=== PATIENT | female | born 1945 | race Caucasian/White ===

== ENCOUNTER 2020-06-09 20:04 | Emergency (ER) | payer MEDICARE, BC, SELFPAY ==
[2020-06-09 20:17] VITALS: BP 124/49; PULSE 67; RESP 14; TEMP 36.7; O2SAT 97; BMI 22.4
--- NOTE | 2020-06-09 20:40 | XR_ITS ---
EXAMINATION: XR FOREARM, RIGHT CLINICAL INFORMATION: Fall, pain COMPARISON: None TECHNIQUE: AP and lateral views of the right forearm were obtained. FINDINGS: Fracture of the distal radius. Mild ventral angulation at the fracture apex. Comminuted. Fracture likely communicates with the articulation of the proximal carpal row. XR/XR forearm RT 2V IMPRESSION: Fracture distal radial metaphysis. Mild ventral angulation
--- NOTE | 2020-06-09 20:41 | ECG_ITS ---
Test Reason : FALL Blood Pressure : / mmHG Vent. Rate : 067 BPM Atrial Rate : 067 BPM P-R Int : 162 ms QRS Dur : 076 ms QT Int : 382 ms P-R-T Axes : 071 052 069 degrees QTc Int : 403 ms Normal sinus rhythm Normal ECG When compared with ECG of 26-OCT-2019 15:47, No significant change was found Referred By: Generic ED Physician Electronically Signed By:RAHAT DOUGLAS MD
[2020-06-09 21:43] LABS: Basophils Percent Auto 0.1 % (0-2); Hematocrit 39.2 % (37-47); Hemoglobin 12.6 g/dl (12.0-16.0); Imm Gran Abs Auto 0.03 X10*3/uL (0.00-0.03); Imm Gran Pct Auto 0.3 % (0.0-0.4); Lymphocytes Absolute Auto 0.5 X10*3/uL (1.2-4.9); Lymphocytes Percent Auto 4.9 % (20-40); MANUAL DIFF FLAG SCAN; Mean Corpuscular HGB Conc 32.1 g/dl (31.0-35.0); Mean Corpuscular Hemoglobin 30.6 pg (27.0-33.0); Mean Corpuscular Volume 95.1 fL (80-98); Mean Platelet Volume 10.4 fL (9.4-12.3); Monocytes Absolute Auto 0.3 X10*3/uL (0.1-1.2); Monocytes Percent Auto 3.7 % (2-11); Neutrophils Absolute Auto 8.4 X10*3/uL (2.0-8.3); Platelet Count 296 X10*3/uL (160-400); Red Blood Count 4.12 X10*6/uL (4.20-5.50); Red Cell Distribution Width 13.5 % (11.0-16.0); SCAN SMEAR FLAG 1; White Blood Count 9.2 X10*3/uL (4.8-10.8)
[2020-06-09 22:02] LABS: Alanine Aminotransferase 22 U/L (0-31); Albumin Level 4.5 g/dL (3.5-5.0); Alkaline Phosphatase 104 U/L (39-117); Anion Gap 15 (12-20); Aspartate Amino Transferase 19 U/L (5-31); Bilirubin Total 0.6 mg/dL (0.0-1.0); Blood Urea Nitrogen 22 mg/dL (9-16); Calcium 9.3 mg/dL (8.4-10.2); Carbon Dioxide 25 mmol/L (22-29); Chloride 108 mmol/L (96-108); Creatinine Clr Calc Pharmacy 57.6; Estimated Glomerular Filt Rate > 60; Glucose Random 140 mg/dL (60-115); Potassium 4.6 mmol/l (3.3-5.1); Sodium 143 mmol/L (135-145); Total Protein 6.8 g/dL (6.5-8.0)
[2020-06-09 22:06] LABS: SLIDE REVIEW VERIFIED
[2020-06-09 22:08] LABS: Troponin-I High Sensitivity < 3.5 ng/L (<3.5-17.0)
--- NOTE | 2020-06-09 22:26 | ED_ITS ---
HPI - Fall General Chief Complaint: Fall Stated Complaint: fall Time Seen by Provider: 06/09/20 22:15 Source: patient Mode of arrival: ambulatory Limitations: no limitations History of Present Illness HPI Narrative: 74 yo female with dementia, HTN recent R eye surgery here with fall after tripping over a chair - no head or neck pain, no AC therapy exam concerning for R wrist fracture, labs / EKG, xray from waiting room ordered MD complaint: fall Onset (ago): hour(s) (today prior to arrival ) Fall from: standing Place fall occurred: home Loss of consciousness: none Prolonged down time: no Symptoms prior to fall: none Context: tripped/slipped Location of injury - extremities: right: forearm Severity: moderate Quality: aching Associated symptoms (after fall): denies Related Data Previous Rx's Medication Instructions Recorded hydrocodone-acetaminophen 1 tab PO Q6H PRN #12 tab 06/09/20 Allergies Allergy/AdvReac Type Severity Reaction Status Date / Time No Known Allergies Allergy Unknown NONE Verified 06/09/20 20:22 Review of Systems Review of Systems: Constitutional : No Fever, No Chills ENT/Mouth : No Ear Pain, No Hoarseness, No sore throat Eyes: No Eye Pain, No Swelling, No Redness, No Foreign Body Cardiovascular : No Chest Pain, No SOB Respiratory : No Cough, No Dyspnea Gastrointestinal : No Nausea, No Vomiting, No Diarrhea, No abdominal Pain Genitourinary : No Dysuria, No Hematuria Musculoskeletal : positive joint pain, No Myalgias, No Joint Swelling Skin : No Skin lacerations, No rash Neuro : No Weakness, No Numbness, No Loss of Consciousness, No Dizziness, No Headache Psych : No Anxiety/Panic, No Depression Heme/Lymph: no easy bruising, no Lymphadenopathy Endocrine : No Polyuria, No Polydipsia All other systems reviewed and are negative PMFSH Past Medical History Attestation statement: The following information was validated with the patient. Source: old records reviewed Medical History (Updated 06/09/20 @ 22:52 by Katja Campa DO) Dementia HTN (hypertension) Social History Social History (Updated 06/09/20 @ 22:32 by Katja Campa DO) Smoking Status: Never smoker Advance Directives: No Advance Directives Information Provided: No Physical Exam Vital Signs: Vital Signs: Last Vital Signs Temp 98.1 F 06/09/20 20:17 Pulse 67 06/09/20 20:17 Resp 14 06/09/20 20:17 BP 124/49 L 06/09/20 20:17 Pulse Ox 97 06/09/20 20:17 Body Mass Index 22.4 Appearance: Alert. Oriented X3 with questioning but seems mildly confused. No acute distress. Anxious Eyes: Pupils equal, round and reactive to light. ENT: Pharynx normal. Neck: Normal inspection. Neck supple. CVS: Normal heart rate and rhythm. Pulses normal. Respiratory: No respiratory distress. Breath sounds normal. Abdomen: Soft and nontender. Skin: Skin warm and dry. Normal skin color. Normal skin turgor. Extremities: No lower extremity edema. No calf ttp R wrist 2+ radial pulse, BRC in all digits, swelling and mild deformity at the wrist (R ) Neuro: Oriented X 3. No motor deficit. No sensory deficit. Course Course Course Narrative: the patient tolerated manipulation and traction well the area is comminuted I do not think I will be able to get better placement in the ED at this time given repeat lateral view, will refer to orthopedics Procedures Orthopedic Splinting/Casting Injury #1: Side: right Upper Extremity Injury Location: wrist Upper Extremity Immobilizer: sling/shoulder immobilizer and sugar tong splint Additional Comments: post splint NV intact MDM - Fall MDM Narrative Medical decision making narrative: 74 yo female was walking and tripped - bruce ng on R wrist, labs/EKG, xray from waiting room done, no AC therapy denies head or neck pain - will need reduction and splint/sling - PO pain medications referral to orthopedics, NV intact Lab Data Result diagrams: 06/09/20 21:26 06/09/20 21:26 Labs: Lab Results 06/09/20 06/09/20 06/09/20 Range/Units 21:26 21:26 21:26 WBC 9.2 (4.8-10.8) X10*3/uL RBC 4.12 L (4.20-5.50) X10*6/uL Hgb 12.6 (12.0-16.0) g/dl Hct 39.2 (37-47) % MCV 95.1 (80-98) fL MCH 30.6 (27.0-33.0) pg MCHC 32.1 (31.0-35.0) g/dl RDW 13.5 (11.0-16.0) % Plt Count 296 (160-400) X10*3/uL MPV 10.4 (9.4-12.3) fL Immature Gran % (Auto) 0.3 (0.0-0.4) % Neut % (Auto) 91.0 H (45-73) % Lymph % (Auto) 4.9 L (20-40) % [place] % (Auto) 3.7 (2-11) % Eos % (Auto) 0.0 (0-4) % Baso % (Auto) 0.1 (0-2) % Lymph # (Auto) 0.5 L (1.2-4.9) X10*3/uL [place] # (Auto) 0.3 (0.1-1.2) X10*3/uL Eos # (Auto) 0.0 (0.0-0.4) X10*3/uL Baso # (Auto) 0.0 (0.0-0.2) X10*3/uL Abs Immat Gran (auto) 0.03 (0.00-0.03) X10*3/uL Absolute Neuts (auto) 8.4 H (2.0-8.3) X10*3/uL Absolute Nucleated RBC 0.000 (0.0-0.012) X10*3/uL Nucleated RBC % (auto) 0.0 (0.0-0.2) /100WBC Smear Tech's Comments VERIFIED Hold Blue Top SEE NOTE Sodium 143 (135-145) mmol/L Potassium 4.6 (3.3-5.1) mmol/l Chloride 108 (96-108) mmol/L Carbon Dioxide 25 (22-29) mmol/L Anion Gap 15 (12-20) BUN 22 H (9-16) mg/dL Creatinine 0.82 (0.5-1.4) mg/dL Estim Creat Clear Calc 57.6 Estimated GFR > 60 Random Glucose 140 H (60-115) mg/dL Calcium 9.3 (8.4-10.2) mg/dL Total Bilirubin 0.6 (0.0-1.0) mg/dL AST 19 (5-31) U/L ALT 22 (0-31) U/L Alkaline Phosphatase 104 (39-117) U/L Troponin I High Sens (<3.5-17.0) ng/L Total Protein 6.8 (6.5-8.0) g/dL Albumin 4.5 (3.5-5.0) g/dL 06/09/20 Range/Units 21:26 WBC (4.8-10.8) X10*3/uL RBC (4.20-5.50) X10*6/uL Hgb (12.0-16.0) g/dl Hct (37-47) % MCV (80-98) fL MCH (27.0-33.0) pg MCHC (31.0-35.0) g/dl RDW (11.0-16.0) % Plt Count (160-400) X10*3/uL MPV (9.4-12.3) fL Immature Gran % (Auto) (0.0-0.4) % Neut % (Auto) (45-73) % Lymph % (Auto) (20-40) % [place] % (Auto) (2-11) % Eos % (Auto) (0-4) % Baso % (Auto) (0-2) % Lymph # (Auto) (1.2-4.9) X10*3/uL [place] # (Auto) (0.1-1.2) X10*3/uL Eos # (Auto) (0.0-0.4) X10*3/uL Baso # (Auto) (0.0-0.2) X10*3/uL Abs Immat Gran (auto) (0.00-0.03) X10*3/uL Absolute Neuts (auto) (2.0-8.3) X10*3/uL Absolute Nucleated RBC (0.0-0.012) X10*3/uL Nucleated RBC % (auto) (0.0-0.2) /100WBC Smear Tech's Comments Hold Blue Top Sodium (135-145) mmol/L Potassium (3.3-5.1) mmol/l Chloride (96-108) mmol/L Carbon Dioxide (22-29) mmol/L Anion Gap (12-20) BUN (9-16) mg/dL Creatinine (0.5-1.4) mg/dL Estim Creat Clear Calc Estimated GFR Random Glucose (60-115) mg/dL Calcium (8.4-10.2) mg/dL Total Bilirubin (0.0-1.0) mg/dL AST (5-31) U/L ALT (0-31) U/L Alkaline Phosphatase (39-117) U/L Troponin I High Sens < 3.5 (<3.5-17.0) ng/L Total Protein (6.5-8.0) g/dL Albumin (3.5-5.0) g/dL ECG Data Attestation: I personally reviewed and interpreted this ECG as follows: ECG interpretation date: 06/09/20 ECG interpretation time: 22:50 Interpretation: Rate: 67 Rhythm: NSR [place]: normal Normal P waves. Normal [place]. Normal QRS complex. ST T wave : normal no LARRY qTC: normal prior studies: no acute ischemia The study has been interpreted contemporaneously by me. . Discharge Plan Discharge Clinical Impression: Fracture of wrist Qualifiers: Encounter type: initial encounter Fracture type: closed Laterality: right Qualified Code(s): S62.101A - Fracture of unspecified carpal bone, right wrist, initial encounter for closed fracture Patient Disposition: Home, Self-Care Instructions: Wrist Fracture in Adults (ED), Splint Care (ED) Additional Instructions: wear splint until released, monitor for signs of increased pain, blue fingers, cold fingers Prescriptions: New hydrocodone-acetaminophen 5-325 mg tablet 1 tab PO Q6H PRN (Reason: pain) Qty: 12 RF: 0 Referrals: Anjana Ross PA-C [Physician [employer]] - 5 days (please call for appointment the xray shows the bone has multiple fracture sites and crushed this may require surgery )
[2020-06-09] MEDS: oxyCODONE HCl Immed Release 5 MG TABLET PO (22:49)
--- NOTE | 2020-06-09 22:49 | XR_ITS ---
EXAMINATION: XR WRIST, RIGHT CLINICAL INFORMATION: Post splint/reduction. COMPARISON: Right forearm radiographs earlier this evening. TECHNIQUE: PA, lateral, and oblique views of the right wrist. FINDINGS: Again seen is a fracture through the distal radial metaphysis with dorsal angulation. Compared to the prior study, there has been little significant interval change. Casting obscures some detail. Degenerative change is noted at the 1st metacarpophalangeal joint. XR/XR wrist RT min 3V IMPRESSION: Fracture distal radius with dorsal angulation without significant change.
--- NOTE | 2020-06-09 22:51 | PC.NURSE ---
RIGHT FOREARM WRAPPED WITH SUGAR SPLINT BY & RAJI,PCT. PATIENT MEDICATED FOR PAIN WITH OXYCODONE 5MG AND ZOFRAN 4MG PO. PATIENT TOLERATED PROCEDURE WELL, AWAITING REPEAT XRAY TO CONFIRM PLACEMENT. WILL CONTINUE TO MONITOR.
== END 2020-06-09 23:15 | disposition home or self-care (01) ==
PROVIDERS: Emergency Provider Emergency Medicine; PCP Internal Medicine
DX: S52.501A Unspecified fracture of the lower end of right radius, initial encounter for closed fracture (principal); W01.0XXA Fall on same level from slipping, tripping and stumbling without subsequent striking against object, initial encounter; F03.90 Unspecified dementia, unspecified severity, without behavioral disturbance, psychotic disturbance, mood disturbance, and anxiety; I10 Essential (primary) hypertension; Z91.81 History of falling; Y93.9 Activity, unspecified; Y92.019 Unspecified place in single-family (private) house as the place of occurrence of the external cause; Y99.9 Unspecified external cause status
CPT/HCPCS: 25605; 36415; 73090; 73110; 80053; 84484; 85025; 93005; 99283; 99284

== ENCOUNTER 2020-06-12 11:48 | Emergency (ER) | payer MEDICARE, BC, SELFPAY ==
[2020-06-12 14:34] VITALS: BP 109/57; PULSE 69; RESP 16; TEMP 36.6; O2SAT 96; BMI 23.1
--- NOTE | 2020-06-12 15:01 | ED.EXTPRO ---
HPI - Extremity Problem General Chief complaint: Extremity Injury, Upper Stated complaint: fingers blue, broken hand Time Seen by Provider: 06/12/20 15:01 History of Present Illness HPI Narrative: Patient complains of right wrist finger discoloration, she is concerned as she broke her wrist several days ago and a splint was placed and she was told to come back if the fingers change color, she has no pain she has no tingling she has no numbness Related Data Previous Rx's Medication Instructions Recorded hydrocodone-acetaminophen 1 tab PO Q6H PRN #12 tab 06/09/20 Allergies Allergy/AdvReac Type Severity Reaction Status Date / Time No Known Allergies Allergy Unknown NONE Verified 06/09/20 20:22 Review of Systems Review of Systems: Right hand finger discoloration Negatives are no numbness no tingling no paresthesias, no dizziness no weakness, no pain PMFSH Past Medical History Source: nursing notes reviewed Medical History (Updated 06/12/20 @ 15:21 by DANELLE Kennedy) Dementia HTN (hypertension) Social History Social History (Updated 06/09/20 @ 22:32 by Katja Campa DO) Smoking Status: Never smoker Smoked in Last 30 Days: No Use of substances other than those prescribed or required for medical reasons: No Advance Directives: No Advance Directives Information Provided: No Physical Exam Vital Signs: Vital Signs: Last Vital Signs Temp 97.8 F 06/12/20 14:34 Pulse 69 06/12/20 14:34 Resp 16 06/12/20 14:34 BP 109/57 L 06/12/20 14:34 Pulse Ox 96 06/12/20 14:34 Body Mass Index 23.1 General appearance is no acute distress comfortable relaxed A&O x3 Head is normocephalic atraumatic Neck is supple Respiratory no distress Extremities the splint is removed from the right hand and there is ecchymosis from the mid dorsal forearm all the way to the mid phalanx of multiple fingers, cap refill is fully intact, radial pulse is normal and easily palpated, tips of fingers are normal color and normal appearance, the dorsal wrist is swollen over the radius, sensation and motor are intact in the fingers Course Course Course Narrative: The discoloration of the fingers is ecchymosis, there is no evidence of ischemic digits she has no pain cap refill is normal distal fingertips are totally normal in appearance Discharge Plan Discharge Clinical Impression: Fracture of wrist Qualifiers: Encounter type: sequela Fracture type: closed Laterality: right Qualified Code(s): S62.101S - Fracture of unspecified carpal bone, right wrist, sequela Patient Disposition: Home, Self-Care Additional Instructions: The discoloration of the back of her hand wrist and finger tips is from bruising under the skin, no sign of any serious problem We replaced her splint and recommend he follow-up with the orthopedist next week, call Dr. Ramirez [phone] Prescriptions: No Action hydrocodone-acetaminophen 5-325 mg tablet 1 tab PO Q6H PRN (Reason: pain) Qty: 12 RF: 0 Referrals: Segun Ramirez MD [Physician] - 2 days (Right wrist fracture)
== END 2020-06-12 16:19 | disposition home or self-care (01) ==
PROVIDERS: Emergency Provider Emergency Medicine Emergency Medical Services; PCP Internal Medicine
DX: S62.101A Fracture of unspecified carpal bone, right wrist, initial encounter for closed fracture (principal); M25.531 Pain in right wrist; X58.XXXA Exposure to other specified factors, initial encounter; Y93.9 Activity, unspecified; Y92.9 Unspecified place or not applicable; Y99.9 Unspecified external cause status
CPT/HCPCS: 99283

== ENCOUNTER 2020-06-18 10:26 | Emergency (ER) | payer MEDICARE, BC, SELFPAY ==
[2020-06-18 10:36] VITALS: BP 82/42; PULSE 65; RESP 16; TEMP 36.1; O2SAT 97; BMI 22.1
--- NOTE | 2020-06-18 10:50 | ED_ITS ---
HPI - Extremity Problem General Chief complaint: Extremity Injury, Upper Stated complaint: splint check Time Seen by Provider: 06/18/20 10:49 Source: patient Mode of arrival: ambulatory Limitations: no limitations History of Present Illness HPI Narrative: 74 y/o female with history of dementia and recurrent falls presents for a splint check today. She is a poor historian. She was initially seen on 06/09 after trip and fall resulting in a right wrist fracture. She was placed in a splint and referred to Orthopedics. She presented back to the ER on 06/12 with painless discoloration and bruising of her fingers. Counseled and discharged with pain meds and again Ortho referral. She has an appointment with Dr. Sommer on Sunday. Her reports changing in bruising, with intermittent swelling. He took the splint off at home and her wrist is more swollen. He placed it back on. He denies new injury. MD Complaint: extremity pain Onset (ago): day(s) Pain Consistency: intermittent Location: right and upper extremity Quality: sharp Radiation: none Relieving factors: immobilization Exacerbating factors: range of motion Associated symptoms: denies other symptoms Related Data Previous Rx's Medication Instructions Recorded hydrocodone-acetaminophen 1 tab PO Q6H PRN #12 tab 06/09/20 Allergies Allergy/AdvReac Type Severity Reaction Status Date / Time No Known Allergies Allergy Unknown NONE Verified 06/09/20 20:22 Review of Systems Review of Systems: Constitutional: No Fever, No Chills Gastrointestinal: No Nausea, No Vomiting Musculoskeletal: + joint pain, + Myalgias Skin: No Skin Lesions, No rash Neuro: + Weakness, No Numbness, No Dizziness Psych: No Anxiety/Panic, No Depression Heme/Lymph: + Bruising, No Lymphadenopathy PMFSH Past Medical History Attestation statement: The following information was validated with the patient. Medical History Dementia HTN (hypertension) Social History Social History (Updated 06/09/20 @ 22:32 by Ktaja Campa DO) Smoking Status: Never smoker Smoked in Last 30 Days: No Use of substances other than those prescribed or required for medical reasons: No Advance Directives: No Advance Directives Information Provided: Yes Physical Exam Vital Signs: Vital Signs: Last Vital Signs Temp 96.9 F 06/18/20 10:36 Pulse 65 01/22/21 10:36 Resp 16 06/18/20 10:36 BP 94/54 L 06/18/20 11:02 Pulse Ox 97 06/18/20 10:36 Body Mass Index 22.1 Appearance: Elderly female, alert. No acute distress. HEENT: normal inspection CVS: Normal heart rate and rhythm. Pulses normal. Respiratory: No respiratory distress. Extremities: right upper extremity with yellowish ecchymosis to upper forearm, swelling to distal forearm over distal radius and tenderness to palpation. Full ROM of fingers, 2+ radial pulse. Finger are warm and well perfused with <3 sec capillary refill. Neuro: Oriented X 2. No motor deficit. No sensory deficit. Course Course Course Narrative: 74 y/o female with recent right wrist fx presenting with bruising and intermittent swelling per . She is constantly picking at the splint and trying to take it off. Not compliant with sling. Upon examination there are no concerning findings. A new splint has been applied and is in adequate position. She can move her fingers well. Additional CHRISTA wrap has been applied to help prevent picking. Patient and were counseled. She will f/u [facility] Dr. Sommer as scheduled on Sunday. Stable for discharge. Critical Care Time Critical Care Time Critical Care Time: No Discharge Plan Discharge Clinical Impression: Fracture of wrist Qualifiers: Encounter type: subsequent encounter Fracture type: closed Laterality: right Fracture healing: with routine healing Qualified Code(s): S62.101D - Fracture of unspecified carpal bone, right wrist, subsequent encounter for fracture with routine healing Patient Disposition: Home, Self-Care Instructions: Wrist Fracture in Adults (ED) Additional Instructions: The bruising and discoloration of the arm can be normal. Your exam was reassuring with good blood flow. A new splint was applied today in the Emergency Department. Elevate your arm above the level of the heart when possible. Propping up on several pillows will help do this. Keep in place over the weekend. Follow up with Dr. Sommer as scheduled on Sunday. Take Tylenol around the clock for pain. [place] the previously prescribed hydrocodone for severe pain only. If you develop severe pain, are unable to move your fingers or have numbness/tinlging come back to the ER for further evaluation. Prescriptions: No Action hydrocodone-acetaminophen 5-325 mg tablet 1 tab PO Q6H PRN (Reason: pain) Qty: 12 RF: 0 Interventions: ED Discharge Assessment Last Done: 06/18/20 11:50 Discharge Date/Time: 06/18/20 11:45
[2020-06-18 11:02] VITALS: BP 94/54
--- NOTE | 2020-06-18 11:05 | PC.NURSE ---
pa nano in to assess aware manual bp 82/42 dynamap 80/39, pa reassessed manual bp 94/54 and 94/56
== END 2020-06-18 11:45 | disposition home or self-care (01) ==
PROVIDERS: Emergency Provider Internal Medicine; PCP Internal Medicine
DX: S62.101D Fracture of unspecified carpal bone, right wrist, subsequent encounter for fracture with routine healing (principal); W01.0XXD Fall on same level from slipping, tripping and stumbling without subsequent striking against object, subsequent encounter; Z91.81 History of falling
CPT/HCPCS: 29125; 99284

== ENCOUNTER 2020-06-21 09:08 | Outpatient (REF) | payer MEDICARE, BC, SELFPAY ==
--- NOTE | 2020-06-21 10:13 | XR_ITS ---
EXAMINATION: XR WRIST, RIGHT CLINICAL INFORMATION: Right wrist pain. COMPARISON: Right wrist 06/09/2020 TECHNIQUE: PA, lateral, and oblique views of the right wrist. FINDINGS: The cast has been removed. There is distal radial fracture with dorsal angulation unchanged to previous study. No additional fractures seen. There is diffuse osteopenia. The soft tissues are normal. XR/XR wrist RT min 3V IMPRESSION: Gastrointestinal and removed. There is a distal radial fracture dorsal angulation unchanged to the right wrist exam 06/09/2020. Diffuse osteopenia.
== END 2020-06-21 09:09 | disposition home or self-care (01) ==
LOC: HO.HOSX 09:08
PROVIDERS: PCP Internal Medicine; Visit Provider Orthopaedic Surgery
DX: S52.501A Unspecified fracture of the lower end of right radius, initial encounter for closed fracture (principal)
CPT/HCPCS: 25600; 73110; 99202

== ENCOUNTER 2020-07-07 09:11 | Outpatient (REF) | payer MEDICARE, BC, SELFPAY ==
--- NOTE | ~2020-07-07 | XR_ITS ---
EXAMINATION: XR WRIST, RIGHT CLINICAL INFORMATION: Pain right wrist. COMPARISON: Radiographs right wrist 06/21/2020, 06/09/2020 TECHNIQUE: PA, lateral, and oblique views of the right wrist. FINDINGS: There is posttraumatic deformity distal radius with mild dorsal angulation and displacement distal radial metaphysis with some ossification dorsal side distal radius similar to prior exam. There is no change in alignment. No dislocation. No interval destructive process. Again, there is generalized osteopenia and degenerative changes 1st carpometacarpal joint. XR/XR wrist RT min 3V IMPRESSION: No change in alignment distal radial fracture.
== END 2020-07-07 09:12 | disposition home or self-care (01) ==
LOC: HO.HOSX 09:11
PROVIDERS: Visit Provider Orthopaedic Surgery
DX: M25.531 Pain in right wrist (principal); S52.501A Unspecified fracture of the lower end of right radius, initial encounter for closed fracture; X58.XXXA Exposure to other specified factors, initial encounter; Y93.9 Activity, unspecified; Y92.9 Unspecified place or not applicable; Y99.8 Other external cause status; F03.90 Unspecified dementia, unspecified severity, without behavioral disturbance, psychotic disturbance, mood disturbance, and anxiety; E78.00 Pure hypercholesterolemia, unspecified; I10 Essential (primary) hypertension; F17.210 Nicotine dependence, cigarettes, uncomplicated
CPT/HCPCS: 73110; 99212

== ENCOUNTER 2021-04-01 10:43 | Emergency (ER) | payer MEDICARE, BC, SELFPAY ==
--- NOTE | ~2021-04-01 | CT_ITS ---
EXAMINATION: CT ABDOMEN AND PELVIS WITHOUT CONTRAST CLINICAL INFORMATION: Right flank pain. Urinary retention. COMPARISON: Radiograph 03/31/2018 TECHNIQUE: Multidetector volumetric imaging was performed from the superior aspect of the liver through the pubic symphysis. Sagittal and coronal reformatted images were obtained on the technologist's workstation. This CT examination was performed using dose optimization techniques as appropriate, variously including the following: *Automated exposure control *Adjustment of mA and/or kV according to patient size (this includes techniques or standardized protocols for targeted exams where dose is matched to indication/reason for exam; i.e. extremities or head) *Use of iterative reconstruction technique DLP: 407 mGy-cm FINDINGS: LUNG BASES: Linear atelectasis of the lung bases. The visualized cardiac structures are unremarkable. LIVER, GALLBLADDER, AND BILIARY TREE: The liver is normal in size, shape, and attenuation. No focal hepatic lesion or biliary ductal dilatation is present. The gallbladder is unremarkable with no evidence of radiopaque gallstones, gallbladder wall thickening, or obvious pericholecystic inflammatory changes. PANCREAS: Unremarkable. SPLEEN: Unremarkable. ADRENAL GLANDS: Unremarkable. KIDNEYS AND URETERS: The kidneys are normal in size, shape, and attenuation. No hydronephrosis, hydroureter, or calculi seen. No perinephric stranding. BLADDER: Partially distended with no gross abnormality. GASTROINTESTINAL TRACT: The stomach is unremarkable. Normal caliber of the small bowel. There is no obstruction. No colonic wall thickening or acute inflammatory change. There is diffuse colonic diverticulosis. No diverticulitis. Appendix is not seen. No inflammatory changes at the cecum to suggest appendicitis. No free air or free fluid. ABDOMINAL WALL: No significant hernia is appreciated. LYMPH NODES: Normal. VASCULAR: Normal caliber aorta with mild atherosclerotic calcification. PELVIC VISCERA: Anteverted uterus with somewhat lobulated appearance, suggestive of fibroids. OSSEOUS STRUCTURES: No acute or suspicious osseous abnormality. Mild degenerative changes throughout the spine. Mild degenerative changes of both hips. CT/CT abdomen pelvis wo con IMPRESSION: No acute findings in the abdomen or pelvis. No hydronephrosis or nephrolithiasis. No inflammatory change. There is colonic diverticulosis diffusely without diverticulitis. Probable uterine fibroids.
[2021-04-01 11:02] VITALS: BP 121/82; PULSE 58; RESP 15; TEMP 36.5; O2SAT 99; BMI 20.1
--- NOTE | 2021-04-01 11:10 | ED.FEMALEGU ---
HPI - Female Genitourinary General Chief complaint: Urogenital-Female Stated complaint: ?uti Time Seen by Provider: 04/01/21 11:05 Source: patient and family Mode of arrival: ambulatory Limitations: no limitations History of Present Illness MD elicited complaint: dysuria, UTI , back pain, urinary incontinence and difficulty urinating Onset (ago): day(s) (started Sunday) Severity: moderate Consistency: intermittent Urinary symptoms: Dysuria, Difficulty Urinating and Flank Pain Exacerbating factors: urination Relieving factors: none Associated symptoms: weakness and back pain Treatment prior to arrival: none Related Data Home Medications Medication Instructions Recorded Confirmed acetaminophen 650 mg/20.3 mL oral 325 mg PO Q4H PRN 06/21/20 solution amlodipine 5 mg tablet 5 mg PO DAILY 06/21/20 calcium carbonate 600 mg calcium 600 mg PO DAILY 06/21/20 (1,500 mg) tablet donepezil 5 mg tablet 5 mg PO DAILY 06/21/20 lisinopril 40 mg tablet 40 mg PO DAILY 06/21/20 loratadine 5 mg-pseudoephedrine ER 1 tab PO Q12H 06/21/20 120 mg tablet,extended release,12hr Previous Rx's Medication Instructions Recorded hydrocodone 5 mg-acetaminophen 325 1 tab PO Q6H PRN #12 tab 06/09/20 mg tablet cefuroxime axetil 250 mg tablet 250 mg PO BID 7 Days #14 tab 04/01/21 phenazopyridine 100 mg tablet 100 mg PO BID PRN #6 tab 04/01/21 (Pyridium) Allergies Allergy/AdvReac Type Severity Reaction Status Date / Time No Known Allergies Allergy Unknown NONE Verified 07/07/20 13:42 Review of Systems Review of Systems: Constitutional : No Weight loss, No Fever, No Chills, No Fatigue, No Malaise ENT/Mouth : No sore throat, No Rhinorrhea Eyes: No Eye Pain, No Swelling, No Redness Cardiovascular : No Chest Pain, No SOB, No Dyspnea on Exertion, No Orthopnea, No Edema, No Palpitations Respiratory : No Cough, No Sputum, No Wheezing Gastrointestinal : No Nausea, No Vomiting, No Diarrhea, No Constipation, No abdominal Pain, No Hematochezia, No Melena Genitourinary : pos Dysuria, pos Urinary Frequency, No Hematuria, Musculoskeletal : No joint pain, No Myalgias, No Joint Swelling, pos R back pain Skin : No Skin Lesions, No rash Neuro : pos Weakness, No Numbness, No Dizziness, No Headache Psych : No Anxiety/Panic, No Depression Heme/Lymph: No Bruising, No Bleeding,No Lymphadenopathy Endocrine : No Polyuria, No Polydipsia All other systems reviewed and are negative [facility] Past Medical History Attestation statement: The following information was validated with the patient. Medical History Dementia High cholesterol HTN (hypertension) Surgical History H/O left wrist surgery Social History Social History (Updated 04/01/21 @ 11: by Katja Campa DO) Alcohol intake: never Patient Tobacco Use Status: Never used Tobacco Use of substances other than those prescribed or required for medical reasons: No Advance Directives: No Current occupational status: retired Current occupation: right handed Physical Exam Vital Signs: Vital Signs: Last Vital Signs Temp 97.7 F 04/01/21 11:02 Pulse 58 04/01/21 11:02 Resp 15 04/01/21 11:02 BP 121/82 04/01/21 11:02 Pulse Ox 99 04/01/21 11:02 Body Mass Index 20.1 Appearance: Alert. Oriented X3. No acute distress. Eyes: Pupils equal, round and reactive to light. ENT: Pharynx normal. Neck: Normal inspection. Neck supple. CVS: Normal heart rate and rhythm. Pulses normal. Respiratory: No respiratory distress. Breath sounds normal. Abdomen: Soft and nontender. Back: mild R CVA ttp Skin: Skin warm and dry. Normal skin color. Normal skin turgor. Extremities: No lower extremity edema. No calf ttp Neuro: Oriented X 3. No motor deficit. No sensory deficit. Course Course Course Narrative: no acute findings on today exam but c/o cystitis will start on low dose ceftin and pyridium for symptoms pateint is not retaining PVR 88 MDM - Female Genitourinary MDM Narrative Medical decision making narrative: 75 yo female with HTN, dementia noted since Sunday some dysuria, R flank pain, diff urinating then last night she was incontinent while in bed - no fevers, no vomiting. At this time will need labs, cultures, lactic acid, UA< CT scan for mass/renal colic, IVF - suspect either stone vs mass vs UTI. Dispo per results and findings. Lab Data Result diagrams: 04/01/21 11:04/01/21 11: Labs: Lab Results 04/01/21 04/01/21 04/01/21 Range/Units 11: 11: 11:31 WBC 5.9 (4.8-10.8) X10*3/uL RBC 4.17 L (4.20-5.50) X10*6/uL Hgb 12.6 (12.0-16.0) g/dl Hct 39.7 (37.0-47.0) % MCV 95.2 (80.0-98.0) fL MCH 30.2 (27.0-33.0) pg MCHC 31.7 (31.0-35.0) g/dl RDW 14.6 (11.0-16.0) % Plt Count 244 (160-400) X10*3/uL MPV 10.4 (9.4-12.3) fL Immature Gran % (Auto) 0.2 (0.0-0.4) % Neut % (Auto) 65.0 (45-73) % Lymph % (Auto) 23.8 (20-40) % [place] % (Auto) 9.0 (2-11) % Eos % (Auto) 1.5 (0-4) % Baso % (Auto) 0.5 (0-2) % Lymph # (Auto) 1.4 (1.2-4.9) X10*3/uL [place] # (Auto) 0.5 (0.1-1.2) X10*3/uL Eos # (Auto) 0.1 (0.0-0.4) X10*3/uL Baso # (Auto) 0.0 (0.0-0.2) X10*3/uL Abs Immat Gran (auto) 0.01 (0.00-0.03) X10*3/uL Absolute Neuts (auto) 3.8 (2.0-8.3) x10*3/uL Absolute Nucleated RBC 0.000 (0.0-0.012) X10*3/uL Nucleated RBC % (auto) 0.0 (0.0-0.2) /100WBC Sodium 145 (135-145) mmol/L Potassium 3.9 (3.3-5.1) mmol/L Chloride 110 H (96-108) mmol/L Carbon Dioxide 28 (22-29) mmol/L Anion Gap 11 L (12-20) BUN 17 H (9-16) mg/dL Creatinine 0.82 (0.5-1.4) mg/dL Estim Creat Clear Calc 52.2 Estimated GFR > 60 Random Glucose 87 (60-115) mg/dL Lactic Acid 0.7 (0.5-2.0) mmol/L Calcium 9.0 (8.4-10.2) mg/dL Magnesium 2.2 (1.6-2.6) mg/dL Total Bilirubin 0.8 (0.0-1.0) mg/dL Direct Bilirubin 0.2 (0.0-0.5) mg/dL AST 26 (5-31) U/L ALT 32 H (0-31) U/L Alkaline Phosphatase 105 (39-117) U/L Total Protein 6.3 L (6.5-8.0) g/dL Albumin 4.3 (3.5-5.0) g/dL Urine Color Urine Appearance Urine pH (5.0-8.0) Ur Specific [place] (1.005-1.025) Urine Protein (NEG-TRACE) MG/DL Urine Glucose (UA) (NEG) MG/DL Urine Ketones (NEG) MG/DL Urine Blood (NEG) Urine Nitrite (NEG) Ur Leukocyte Esterase (NEG) COVID-19 (LILIA) (Negative) COVID-19 Clin Com 04/01/21 04/01/21 Range/Units 11:31 13:32 WBC (4.8-10.8) X10*3/uL RBC (4.20-5.50) X10*6/uL Hgb (12.0-16.0) g/dl Hct (37.0-47.0) % MCV (80.0-98.0) fL MCH (27.0-33.0) pg MCHC (31.0-35.0) g/dl RDW (11.0-16.0) % Plt Count (160-400) X10*3/uL MPV (9.4-12.3) fL Immature Gran % (Auto) (0.0-0.4) % Neut % (Auto) (45-73) % Lymph % (Auto) (20-40) % [place] % (Auto) (2-11) % Eos % (Auto) (0-4) % Baso % (Auto) (0-2) % Lymph # (Auto) (1.2-4.9) X10*3/uL [place] # (Auto) (0.1-1.2) X10*3/uL Eos # (Auto) (0.0-0.4) X10*3/uL Baso # (Auto) (0.0-0.2) X10*3/uL Abs Immat Gran (auto) (0.00-0.03) X10*3/uL Absolute Neuts (auto) (2.0-8.3) x10*3/uL Absolute Nucleated RBC (0.0-0.012) X10*3/uL Nucleated RBC % (auto) (0.0-0.2) /100WBC Sodium (135-145) mmol/L Potassium (3.3-5.1) mmol/L Chloride (96-108) mmol/L Carbon Dioxide (22-29) mmol/L Anion Gap (12-20) BUN (9-16) mg/dL Creatinine (0.5-1.4) mg/dL Estim Creat Clear Calc Estimated GFR Random Glucose (60-115) mg/dL Lactic Acid (0.5-2.0) mmol/L Calcium (8.4-10.2) mg/dL Magnesium (1.6-2.6) mg/dL Total Bilirubin (0.0-1.0) mg/dL Direct Bilirubin (0.0-0.5) mg/dL AST (5-31) U/L ALT (0-31) U/L Alkaline Phosphatase (39-117) U/L Total Protein (6.5-8.0) g/dL Albumin (3.5-5.0) g/dL Urine Color STRAW Urine Appearance CLEAR Urine pH 6.5 (5.0-8.0) Ur Specific [place] <= 1.005 (1.005-1.025) Urine Protein NEG (NEG-TRACE) MG/DL Urine Glucose (UA) NEG (NEG) MG/DL Urine Ketones NEG (NEG) MG/DL Urine Blood NEG (NEG) Urine Nitrite NEG (NEG) Ur Leukocyte Esterase NEG (NEG) COVID-19 (LILIA) Negative (Negative) COVID-19 Clin Com See Note Discharge Plan Discharge Clinical Impression: Cystitis Patient Disposition: Home, Self-Care Instructions: Urinary Tract Infection in Women (ED) Additional Instructions: return to ED for any worsening symptoms or concerns Prescriptions: New cefuroxime axetil 250 mg tablet 250 mg PO BID 7 Days Qty: 14 RF: 0 phenazopyridine [Pyridium] 100 mg tablet 100 mg PO BID PRN (Reason: pain) Qty: 6 RF: 0 No Action hydrocodone-acetaminophen 5-325 mg tablet 1 tab PO Q6H PRN (Reason: pain) Qty: 12 RF: 0 Referrals: Nakita Hernandez MD [Primary Care Provider] - 3 days (if not better Sunday)
[2021-04-01 11:37] LABS: Basophils Percent Auto 0.5 % (0-2); Eosinophils Absolute Auto 0.1 X10*3/uL (0.0-0.4); Eosinophils Percent Auto 1.5 % (0-4); Hematocrit 39.7 % (37.0-47.0); Hemoglobin 12.6 g/dl (12.0-16.0); Imm Gran Abs Auto 0.01 X10*3/uL (0.00-0.03); Imm Gran Pct Auto 0.2 % (0.0-0.4); Lymphocytes Absolute Auto 1.4 X10*3/uL (1.2-4.9); Lymphocytes Percent Auto 23.8 % (20-40); MANUAL DIFF FLAG NO; Mean Corpuscular HGB Conc 31.7 g/dl (31.0-35.0); Mean Corpuscular Hemoglobin 30.2 pg (27.0-33.0); Mean Corpuscular Volume 95.2 fL (80.0-98.0); Mean Platelet Volume 10.4 fL (9.4-12.3); Monocytes Absolute Auto 0.5 X10*3/uL (0.1-1.2); Neutrophils Absolute Auto 3.8 x10*3/uL (2.0-8.3); Platelet Count 244 X10*3/uL (160-400); Red Blood Count 4.17 X10*6/uL (4.20-5.50); Red Cell Distribution Width 14.6 % (11.0-16.0); White Blood Count 5.9 X10*3/uL (4.8-10.8)
[2021-04-01] MEDS: 0.9 % Sodium Chloride 500 ML IV (11:46)
[2021-04-01 11:56] LABS: Alanine Aminotransferase 32 U/L (0-31); Albumin Level 4.3 g/dL (3.5-5.0); Alkaline Phosphatase 105 U/L (39-117); Anion Gap 11 (12-20); Aspartate Amino Transferase 26 U/L (5-31); Bilirubin Direct 0.2 mg/dL (0.0-0.5); Bilirubin Total 0.8 mg/dL (0.0-1.0); Blood Urea Nitrogen 17 mg/dL (9-16); Carbon Dioxide 28 mmol/L (22-29); Chloride 110 mmol/L (96-108); Creatinine Clr Calc Pharmacy 52.2; Estimated Glomerular Filt Rate > 60; Glucose Random 87 mg/dL (60-115); Magnesium 2.2 mg/dL (1.6-2.6); Potassium 3.9 mmol/L (3.3-5.1); Sodium 145 mmol/L (135-145); Total Protein 6.3 g/dL (6.5-8.0)
[2021-04-01 11:57] LABS: Lactic Acid 0.7 mmol/L (0.5-2.0)
[2021-04-01 12:14] LABS: COVID-19 Test Negative (Negative); IDNOW Serial# 9DD0AD1C
[2021-04-01 13:42] LABS: Appearance Urine CLEAR; Color Urine STRAW; Glucose Urine UA NEG (NEG); Leukocyte Esterase Urine NEG (NEG); Nitrite Urine NEG (NEG); PH 6.5 (5.0-8.0); Specific Gravity - Urine <= 1.005 (1.005-1.025); Urine Blood NEG (NEG); Urine Ketones NEG (NEG); Urine Protein NEG (NEG-TRACE)
== END 2021-04-01 14:09 | disposition home or self-care (01) ==
PROVIDERS: Emergency Provider Emergency Medicine; PCP Internal Medicine
DX: N30.90 Cystitis, unspecified without hematuria (principal); R53.1 Weakness; Z20.822 Contact with and (suspected) exposure to COVID-19; I10 Essential (primary) hypertension; F03.90 Unspecified dementia, unspecified severity, without behavioral disturbance, psychotic disturbance, mood disturbance, and anxiety; E78.5 Hyperlipidemia, unspecified
CPT/HCPCS: 36415; 74176; 80048; 80076; 81003; 83605; 83735; 85025; 87040; 87635; 96360; 99284

== ENCOUNTER 2022-03-21 12:00 | Emergency (ER) | payer MEDICARE, BC, SELFPAY ==
--- NOTE | ~2022-03-21 | CT_ITS ---
EXAMINATION: CT HEAD WITHOUT CONTRAST CLINICAL INFORMATION: Status post fall. COMPARISON: 10/26/[address] scan. TECHNIQUE: Contiguous axial imaging was performed from the skull base to vertex without intravenous administration of contrast. Coronal and sagittal reformatted images were obtained. This CT examination was performed using dose optimization techniques as appropriate, variously including the following: *Automated exposure control *Adjustment of mA and/or kV according to patient size (this includes techniques or standardized protocols for targeted exams where dose is matched to indication/reason for exam; i.e. extremities or head) *Use of iterative reconstruction technique DLP: 795.94 mGy-cm FINDINGS: There is mild to moderate widening of the cortical sulci and associated ventriculomegaly. The lateral ventricles are symmetrical with prominent dilatation relative to the degree of atrophy without significant change. Callosal angle is less than 60 degrees. The third and fourth ventricles are in their normal midline position. The basilar and prepontine cisterns are unremarkable. There is no acute intra or extracerebral abnormality. Prominent posterior CSF space in the posterior fossa. There is no mass effect or midline shift. Sections through the bony calvarium are unremarkable. The orbits are intact. The paranasal sinuses are clear. The mastoid air cells are clear. Mild anterior nasal septal deviation, apex of the right with mild left modesto bullosa. CT/CT head/brain wo IV con IMPRESSION: No acute intracranial pathology.
--- NOTE | ~2022-03-21 | XR_ITS ---
EXAMINATION: XR CHEST CLINICAL INFORMATION: Found on floor. COMPARISON: None TECHNIQUE: Frontal view of the chest was obtained. FINDINGS: No significant abnormality is noted involving the heart, lungs, mediastinum, bony thorax or soft tissues. XR/XR chest 1V IMPRESSION: No acute cardiopulmonary process.
--- NOTE | ~2022-03-21 | CT_ITS ---
EXAMINATION: CT CERVICAL SPINE WITHOUT CONTRAST CLINICAL INFORMATION: Neck pain, found on the floor. COMPARISON: None TECHNIQUE: Multiple axial images of the cervical spine were obtained without the administration of intravenous contrast. Coronal and sagittal reformatted images were obtained. This CT examination was performed using dose optimization techniques as appropriate, variously including the following: *Automated exposure control *Adjustment of mA and/or kV according to patient size (this includes techniques or standardized protocols for targeted exams where dose is matched to indication/reason for exam; i.e. extremities or head) *Use of iterative reconstruction technique DLP: 263.20 mGy-cm FINDINGS: There is straightening of the normal cervical lordosis. Moderate to severe multilevel degenerative disc disease is seen most pronounced at C5-6 posteriorly. Mild bilateral neural foraminal narrowing is seen from C4-5 to C6-7, most pronounced at C5-6. The odontoid process is intact with moderate calculating degenerative changes. Mild to moderate multilevel bilateral facet arthropathy is seen. The spinous processes are intact. There is no acute fracture. The cervical soft tissues are unremarkable. No lymphadenopathy. The thyroid gland is unremarkable. Minimal biapical scarring is seen. CT/CT cervical spine wo IV con IMPRESSION: 1. Straightening of the normal cervical lordosis may be secondary to positioning and/or muscle spasm. 2. Multilevel degenerative changes without acute abnormality.
--- NOTE | 2022-03-21 12:17 | ECG_ITS ---
Test Reason : fall Blood Pressure : / mmHG Vent. Rate : 065 BPM Atrial Rate : 065 BPM P-R Int : 154 ms QRS Dur : 086 ms QT Int : 416 ms P-R-T Axes : 071 034 062 degrees QTc Int : 432 ms Normal sinus rhythm Nonspecific ST abnormality Abnormal ECG When compared with ECG of 09-JUN-2020 21:18, No significant change was found Referred By: Chloe Hall Electronically Signed By:GIULIANA CORONADO MD
--- NOTE | 2022-03-21 12:18 | ED_ITS ---
HPI - General Adult General Chief complaint: Fall Stated complaint: FALL,GEN WEAKNESS Time Seen by Provider: 03/21/22 12:08 Source: patient and EMS Mode of arrival: EMS Limitations: no limitations History of Present Illness HPI narrative: Patient comes to the emergency room via ambulance, seems the patient fell. A ccording to EMS, the patient was found by her on the floor this morning. Last time that she was seeing up and walking was 20:00, 16 hours ago. Patient is poor historian, unable to explain what happened. Patient denies chest pain or shortness of breath, denies headache, neck pain. Family reports that the patient has been weaker than usual which is unusual for her. Related Data Home Medications Medication Instructions Recorded Confirmed acetaminophen 650 mg/20.3 mL oral 325 mg PO Q4H PRN 06/21/20 solution amlodipine 5 mg tablet 5 mg PO DAILY 06/21/20 calcium carbonate 600 mg calcium 600 mg PO DAILY 06/21/20 (1,500 mg) tablet donepezil 5 mg tablet 5 mg PO DAILY 06/21/20 lisinopril 40 mg tablet 40 mg PO DAILY 06/21/20 loratadine 5 mg-pseudoephedrine ER 1 tab PO Q12H 06/21/20 120 mg tablet,extended release,12hr Previous Rx's Medication Instructions Recorded hydrocodone 5 mg-acetaminophen 325 1 tab PO Q6H PRN pain #12 tabs 06/09/20 mg tablet cefuroxime axetil 250 mg tablet 250 mg PO BID 7 days #14 tabs 04/01/21 phenazopyridine 100 mg tablet 100 mg PO BID PRN pain 6 doses #6 04/01/21 (Pyridium) tabs Allergies Allergy/AdvReac Type Severity Reaction Status Date / Time No Known Allergies Allergy Unknown NONE Verified 07/07/20 13:42 Review of Systems Review of Systems: Yes Unobtainable due to mental condition [facility] Past Medical History Medical History Dementia High cholesterol HTN (hypertension) Surgical History H/O left wrist surgery Social History Social History (Updated 04/01/21 @ 11:26 by Simin Campa DO) Alcohol intake: never Patient Tobacco Use Status: Never used Tobacco Advance Directives: Yes Advance Directives Information Provided: Yes Advance Directives on File: No Current occupational status: retired Current occupation: right handed Physical Exam ED Vital Signs: Vital Signs - 24 hr 03/21/22 12:31 Temperature 97.8 F Pulse Rate 65 Respiratory Rate 16 Blood Pressure 155/76 H Pulse Oximetry 100 Oxygen Delivery Method Room Air BMI result Body Mass Index 22.8 Const Other: Appearance: Alert. Oriented X2. No acute distress. Eyes: Pupils equal, round and reactive to light. ENT: Pharynx normal. Neck: Normal inspection. Neck supple. No lymph nodes noted. No crepitus CVS: Normal heart rate and rhythm. Pulses normal. Normal S1 and S2 Respiratory: No respiratory distress. Breath sounds normal. No Wheezing. No rales Abdomen: Soft and nontender. No rigidity. No distention. Skin: Skin warm and dry. Normal skin color. Normal skin turgor. Extremities: No lower extremity edema. No Lacerations. No Rash Neuro: Oriented X 2. No motor deficit. No sensory deficit. Moving all extremities. No slurred speech. CN 2 through 12 grossly intact Psych: calm, cooperative, very anxious Course Course Course Narrative: all of patient/and imaging are pending Patient's CPK slightly elevated, creatinine within normal limits. Urinalysis negative, head and cervical spine CT did not show any acute abnormalities. I spoke with the patient's and daughter, patient is more confused than usual. Patient does have history of dementia and sundowning but today seems that she is more confused than usual for this time of day. Behavioral health network consult pending. Patient may need Mya psych consult. According to the patient's daughter, there have been no new medications or changes in doses. Physician o observation started at 20:00 Medical Decision Making Lab Data Result diagrams: 03/21/22 14:31 03/21/22 14:31 Labs: Lab Results 03/21/22 03/21/22 03/21/22 Range/Units 14:31 14:31 14:31 WBC 10.2 (4.8-10.8) X10*3/uL RBC 4.53 (4.20-5.50) X10*6/uL Hgb 13.8 (12.0-16.0) g/dl Hct 42.8 (37.0-47.0) % MCV 94.5 (80.0-98.0) fL MCH 30.5 (27.0-33.0) pg MCHC 32.2 (31.0-35.0) g/dl RDW 14.0 (11.0-16.0) % Plt Count 246 (160-400) X10*3/uL MPV 10.4 (9.4-12.3) fL Immature Gran % (Auto) 0.2 (0.0-0.4) % Neut % (Auto) 85.0 H (45-73) % Lymph % (Auto) 7.7 L (20-40) % [place] % (Auto) 6.6 (2-11) % Eos % (Auto) 0.2 (0-4) % Baso % (Auto) 0.3 (0-2) % Lymph # (Auto) 0.8 L (1.2-4.9) X10*3/uL [place] # (Auto) 0.7 (0.1-1.2) X10*3/uL Eos # (Auto) 0.0 (0.0-0.4) X10*3/uL Baso # (Auto) 0.0 (0.0-0.2) X10*3/uL Abs Immat Gran (auto) 0.02 (0.00-0.03) X10*3/uL Absolute Neuts (auto) 8.7 H (2.0-8.3) x10*3/uL Absolute Nucleated RBC 0.000 (0.0-0.012) X10*3/uL Nucleated RBC % (auto) 0.0 (0.0-0.2) /100WBC PT 10.6 (10.0-13.1) SEC INR 0.9 (0.9-1.1) Sodium 143 (135-145) mmol/L Potassium 4.3 (3.3-5.1) mmol/L Chloride 105 (96-108) mmol/L Carbon Dioxide 23 (22-29) mmol/L Anion Gap 19 (12-20) BUN 25 H (9-16) mg/dL Creatinine 0.78 (0.5-1.4) mg/dL Estim Creat Clear Calc 54.3 Estimated GFR > 60 Random Glucose 90 (60-115) mg/dL Lactic Acid (0.5-2.0) mmol/L Calcium 9.1 (8.4-10.2) mg/dL Magnesium 2.2 (1.6-2.6) mg/dL Total Bilirubin 0.8 (0.0-1.0) mg/dL Direct Bilirubin 0.2 (0.0-0.5) mg/dL AST 42 H D (5-31) U/L ALT 25 (0-31) U/L Alkaline Phosphatase 112 (39-117) U/L Total Creatine Kinase 655 H (26-140) U/L Troponin I High Sens (<3.5-17.0) ng/L Total Protein 6.8 (6.5-8.0) g/dL Albumin 4.3 (3.5-5.0) g/dL TSH (0.32-4.0) uIU/mL Urine Color Urine Appearance Urine pH (5.0-9.0) Ur Specific [place] (1.005-1.025) Urine Protein (Neg-Trace) mg/dL Urine Glucose (UA) (Negative) mg/dL Urine Ketones (Negative) mg/dL Urine Blood (Negative) Urine Nitrite (Negative) Ur Leukocyte Esterase (Negative) Urine RBC (0-2) /HPF Urine WBC (0-5) /HPF Ur Squamous Epith Cells (0-2) /HPF Urine Bacteria (None Seen) Hyaline Casts (0-2) /LPF Urine Opiates Screen (Not Detect) Urine Fentanyl Screen (Not Detect) Ur Barbiturates Screen (Not Detect) Ur Phencyclidine Scrn (Not Detect) Ur Amphetamines Screen (Not Detect) U Benzodiazepines Scrn (Not Detect) Urine Cocaine Screen (Not Detect) U Marijuana (THC) Screen (Not Detect) Ethyl Alcohol mg/dL COVID-19 (LILIA) (Negative) COVID-19 Clin Com 03/21/22 03/21/22 03/21/22 Range/Units 14:31 14:31 14:31 WBC (4.8-10.8) X10*3/uL RBC (4.20-5.50) X10*6/uL Hgb (12.0-16.0) g/dl Hct (37.0-47.0) % MCV (80.0-98.0) fL MCH (27.0-33.0) pg MCHC (31.0-35.0) g/dl RDW (11.0-16.0) % Plt Count (160-400) X10*3/uL MPV (9.4-12.3) fL Immature Gran % (Auto) (0.0-0.4) % Neut % (Auto) (45-73) % Lymph % (Auto) (20-40) % [place] % (Auto) (2-11) % Eos % (Auto) (0-4) % Baso % (Auto) (0-2) % Lymph # (Auto) (1.2-4.9) X10*3/uL [place] # (Auto) (0.1-1.2) X10*3/uL Eos # (Auto) (0.0-0.4) X10*3/uL Baso # (Auto) (0.0-0.2) X10*3/uL Abs Immat Gran (auto) (0.00-0.03) X10*3/uL Absolute Neuts (auto) (2.0-8.3) x10*3/uL Absolute Nucleated RBC (0.0-0.012) X10*3/uL Nucleated RBC % (auto) (0.0-0.2) /100WBC PT (10.0-13.1) SEC INR (0.9-1.1) Sodium (135-145) mmol/L Potassium (3.3-5.1) mmol/L Chloride (96-108) mmol/L Carbon Dioxide (22-29) mmol/L Anion Gap (12-20) BUN (9-16) mg/dL Creatinine (0.5-1.4) mg/dL Estim Creat Clear Calc Estimated GFR Random Glucose (60-115) mg/dL Lactic Acid 1.0 (0.5-2.0) mmol/L Calcium (8.4-10.2) mg/dL Magnesium (1.6-2.6) mg/dL Total Bilirubin (0.0-1.0) mg/dL Direct Bilirubin (0.0-0.5) mg/dL AST (5-31) U/L ALT (0-31) U/L Alkaline Phosphatase (39-117) U/L Total Creatine Kinase (26-140) U/L Troponin I High Sens 6.6 (<3.5-17.0) ng/L Total Protein (6.5-8.0) g/dL Albumin (3.5-5.0) g/dL TSH (0.32-4.0) uIU/mL Urine Color Urine Appearance Urine pH (5.0-9.0) Ur Specific [place] (1.005-1.025) Urine Protein (Neg-Trace) mg/dL Urine Glucose (UA) (Negative) mg/dL Urine Ketones (Negative) mg/dL Urine Blood (Negative) Urine Nitrite (Negative) Ur Leukocyte Esterase (Negative) Urine RBC (0-2) /HPF Urine WBC (0-5) /HPF Ur Squamous Epith Cells (0-2) /HPF Urine Bacteria (None Seen) Hyaline Casts (0-2) /LPF Urine Opiates Screen (Not Detect) Urine Fentanyl Screen (Not Detect) Ur Barbiturates Screen (Not Detect) Ur Phencyclidine Scrn (Not Detect) Ur Amphetamines Screen (Not Detect) U Benzodiazepines Scrn (Not Detect) Urine Cocaine Screen (Not Detect) U Marijuana (THC) Screen (Not Detect) Ethyl Alcohol mg/dL COVID-19 (LILIA) Negative (Negative) COVID-19 Clin Com See Note 03/21/22 03/21/22 03/21/22 Range/Units 14:31 15:46 15:46 WBC (4.8-10.8) X10*3/uL RBC (4.20-5.50) X10*6/uL Hgb (12.0-16.0) g/dl Hct (37.0-47.0) % MCV (80.0-98.0) fL MCH (27.0-33.0) pg MCHC (31.0-35.0) g/dl RDW (11.0-16.0) % Plt Count (160-400) X10*3/uL MPV (9.4-12.3) fL Immature Gran % (Auto) (0.0-0.4) % Neut % (Auto) (45-73) % Lymph % (Auto) (20-40) % [place] % (Auto) (2-11) % Eos % (Auto) (0-4) % Baso % (Auto) (0-2) % Lymph # (Auto) (1.2-4.9) X10*3/uL [place] # (Auto) (0.1-1.2) X10*3/uL Eos # (Auto) (0.0-0.4) X10*3/uL Baso # (Auto) (0.0-0.2) X10*3/uL Abs Immat Gran (auto) (0.00-0.03) X10*3/uL Absolute Neuts (auto) (2.0-8.3) x10*3/uL Absolute Nucleated RBC (0.0-0.012) X10*3/uL Nucleated RBC % (auto) (0.0-0.2) /100WBC PT (10.0-13.1) SEC INR (0.9-1.1) Sodium (135-145) mmol/L Potassium (3.3-5.1) mmol/L Chloride (96-108) mmol/L Carbon Dioxide (22-29) mmol/L Anion Gap (12-20) BUN (9-16) mg/dL Creatinine (0.5-1.4) mg/dL Estim Creat Clear Calc Estimated GFR Random Glucose (60-115) mg/dL Lactic Acid (0.5-2.0) mmol/L Calcium (8.4-10.2) mg/dL Magnesium (1.6-2.6) mg/dL Total Bilirubin (0.0-1.0) mg/dL Direct Bilirubin (0.0-0.5) mg/dL AST (5-31) U/L ALT (0-31) U/L Alkaline Phosphatase (39-117) U/L Total Creatine Kinase (26-140) U/L Troponin I High Sens (<3.5-17.0) ng/L Total Protein (6.5-8.0) g/dL Albumin (3.5-5.0) g/dL TSH 3.78 (0.32-4.0) uIU/mL Urine Color Yellow Urine Appearance Clear Urine pH 6.0 (5.0-9.0) Ur Specific [place] 1.015 (1.005-1.025) Urine Protein Trace (Neg-Trace) mg/dL Urine Glucose (UA) Negative (Negative) mg/dL Urine Ketones Trace (Negative) mg/dL Urine Blood Trace H (Negative) Urine Nitrite Negative (Negative) Ur Leukocyte Esterase Negative (Negative) Urine RBC 0-2 (0-2) /HPF Urine WBC 0-5 (0-5) /HPF Ur Squamous Epith Cells 0-2 (0-2) /HPF Urine Bacteria None Seen (None Seen) Hyaline Casts 0-2 (0-2) /LPF Urine Opiates Screen Not Detected (Not Detect) Urine Fentanyl Screen Not Detected (Not Detect) Ur Barbiturates Screen Not Detected (Not Detect) Ur Phencyclidine Scrn Not Detected (Not Detect) Ur Amphetamines Screen Not Detected (Not Detect) U Benzodiazepines Scrn Not Detected (Not Detect) Urine Cocaine Screen Not Detected (Not Detect) U Marijuana (THC) Screen Not Detected (Not Detect) Ethyl Alcohol < 10 mg/dL COVID-19 (LILIA) (Negative) COVID-19 Clin Com Discharge Plan Discharge Clinical Impression: Dementia Patient Disposition: Still a Patient Prescriptions: No Action hydrocodone-acetaminophen 5-325 mg tablet 1 tab PO Q6H PRN (Reason: pain) Qty: 12 0RF cefuroxime axetil 250 mg tablet 250 mg PO BID 7 Days Qty: 14 0RF phenazopyridine [Pyridium] 100 mg tablet 100 mg PO BID PRN (Reason: pain) Qty: 6 0RF
[2022-03-21 12:31] VITALS: BP 155/76; BP 160/80; PULSE 65; PULSE 66; RESP 16; TEMP 36.6; O2SAT 100; O2SAT 99; BMI 22.8
[2022-03-21 14:38] LABS: MANUAL DIFF FLAG NO
[2022-03-21 14:40] LABS: Basophils Percent Auto 0.3 % (0-2); Eosinophils Percent Auto 0.2 % (0-4); Hematocrit 42.8 % (37.0-47.0); Hemoglobin 13.8 g/dl (12.0-16.0); Imm Gran Abs Auto 0.02 X10*3/uL (0.00-0.03); Imm Gran Pct Auto 0.2 % (0.0-0.4); Lymphocytes Absolute Auto 0.8 X10*3/uL (1.2-4.9); Lymphocytes Percent Auto 7.7 % (20-40); Mean Corpuscular HGB Conc 32.2 g/dl (31.0-35.0); Mean Corpuscular Hemoglobin 30.5 pg (27.0-33.0); Mean Corpuscular Volume 94.5 fL (80.0-98.0); Mean Platelet Volume 10.4 fL (9.4-12.3); Monocytes Absolute Auto 0.7 X10*3/uL (0.1-1.2); Monocytes Percent Auto 6.6 % (2-11); Neutrophils Absolute Auto 8.7 x10*3/uL (2.0-8.3); Platelet Count 246 X10*3/uL (160-400); Red Blood Count 4.53 X10*6/uL (4.20-5.50); White Blood Count 10.2 X10*3/uL (4.8-10.8)
[2022-03-21 14:47] LABS: INTERNATIONAL NORM RATIO 0.9 (0.9-1.1); Prothrombin Time 10.6 SEC (10.0-13.1)
[2022-03-21 14:53] LABS: COVID-19 Test Negative (Negative); IDNOW Serial# 55D5AD1C
[2022-03-21 15:03] LABS: Ethanol < 10 mg/dL
[2022-03-21 15:06] LABS: Troponin-I High Sensitivity 6.6 ng/L (<3.5-17.0)
[2022-03-21 15:15] LABS: Alanine Aminotransferase 25 U/L (0-31); Albumin Level 4.3 g/dL (3.5-5.0); Alkaline Phosphatase 112 U/L (39-117); Anion Gap 19 (12-20); Aspartate Amino Transferase 42 U/L (5-31); Bilirubin Direct 0.2 mg/dL (0.0-0.5); Bilirubin Total 0.8 mg/dL (0.0-1.0); Blood Urea Nitrogen 25 mg/dL (9-16); Calcium 9.1 mg/dL (8.4-10.2); Carbon Dioxide 23 mmol/L (22-29); Chloride 105 mmol/L (96-108); Creatinine Clr Calc Pharmacy 54.3; Estimated Glomerular Filt Rate > 60; Glucose Random 90 mg/dL (60-115); Magnesium 2.2 mg/dL (1.6-2.6); Potassium 4.3 mmol/L (3.3-5.1); Sodium 143 mmol/L (135-145); Total Protein 6.8 g/dL (6.5-8.0)
[2022-03-21 15:25] LABS: TSH reflex Free T4 3.78 uIU/mL (0.32-4.0)
--- NOTE | 2022-03-21 15:56 | PC.NURSE ---
pt with increased agitation and confusion. she is difficult to redirect and is nonsensicle in her conversation. her has stepped out to the WR she was st cath for 1200ml urine. specimen was sent
[2022-03-21 16:02] LABS: Appearance Urine Clear; Color Urine Yellow; Glucose Urine UA Negative (Negative); Leukocyte Esterase Urine Negative (Negative); Nitrite Urine Negative (Negative); Specific Gravity - Urine 1.015 (1.005-1.025); UMIC TRIGGER UACC YES; Urine Blood Trace (Negative); Urine Ketones Trace mg/dL (Negative); Urine Protein Trace mg/dL (Neg-Trace)
[2022-03-21 16:04] LABS: Bacteria Urine None Seen (None Seen); Hyaline Casts Urine 0-2 /LPF (0-2); RBC Urine 0-2 /HPF (0-2); Squamous Epithelial Cell Urine 0-2 /HPF (0-2); WBC Urine 0-5 /HPF (0-5)
[2022-03-21 16:18] LABS: Amphetamine Screen Urine Not Detected (Not Detect); Barbiturates, Urine Not Detected (Not Detect); Benzodiazepines Screen Urine Not Detected (Not Detect); Cannabinoid Screen Urine Not Detected (Not Detect); Cocaine Screen Urine Not Detected (Not Detect); Fentanyl, urine Not Detected (Not Detect); Opiate Screen Urine Not Detected (Not Detect); Phencyclidine Screen Urine Not Detected (Not Detect)
[2022-03-21 17:29] VITALS: BP 154/64; PULSE 68; RESP 18; TEMP 36.9; O2SAT 98
--- NOTE | 2022-03-21 19:17 | PC.NURSE ---
DEL WAS INITIATED AT 1610 FOR SAFETY SECONDARY TO PTS CONFUSION AND AGITATION HER DAUGHTER WAS HERE AND AGREEABLE TO CARE PLAN FOR ASSESSMENT
[2022-03-21 19:21] VITALS: BP 110/70; PULSE 75; RESP 18; TEMP 36.7; O2SAT 99
--- NOTE | 2022-03-21 19:24 | PC.NURSE ---
Patient fed dinner, ate all of chicken and potatoes along with jello and gingerale . Patient was incontinent of large amt of urine. bedding and hospital attire changed. Vital signs taken and documented
--- NOTE | 2022-03-21 21:00 | PC.NURSE ---
Christiano camera in room. Camera room on [facility] called to confirm that the techs can see pt. on camera. Techs aware that pt. is confused and is a fall risk
[2022-03-21 21:38] VITALS: BP 125/74; PULSE 73; RESP 18; TEMP 36.7
--- NOTE | 2022-03-21 23:47 | MHC.CARE ---
CARE team reviewed chart and history, recommendation is for psych consult at this time. Provider notified.
--- NOTE | 2022-03-22 00:13 | PC.NURSE ---
incontinence care provided .
--- NOTE | 2022-03-22 02:00 | PC.NURSE ---
[facility] at the bedside
[2022-03-22 04:56] VITALS: BP 140/73; PULSE 71; RESP 15; TEMP 37.1; O2SAT 95
[2022-03-22 07:23] VITALS: BP 140/72; PULSE 71; RESP 12; TEMP 36.6
--- NOTE | 2022-03-22 08:57 | PC.NURSE ---
patient wash and linen change positing on to left side .
--- NOTE | 2022-03-22 09:24 | PC.NURSE ---
pt is sleeping resp even and unlabored. skin pink warm dry. portable camera at bedside.
[2022-03-22 09:25] VITALS: BP 118/86; PULSE 74; RESP 12; TEMP 36.9; O2SAT 99
--- NOTE | 2022-03-22 10:21 | MHC.CM.ED ---
Received case management consult overnight. Patient came to the ER due to weakness. Care Team was consulted and recommended psych consult. Case management consult on hold at this time until psych consult is completed. Continue to monitor for d/c needs.
--- NOTE | 2022-03-22 12:49 | PC.NURSE ---
pt's ([phone]) called [facility] for an updated,
[2022-03-22 14:53] VITALS: BP 144/84; PULSE 68; RESP 12; TEMP 36.7
--- NOTE | 2022-03-22 15:17 | PHA.MEDREC ---
Pharmacy Consult ? Medication Reconciliation Pharmacy has completed the medication reconciliation. Spoke to pt's
[2022-03-22] MEDS: Donepezil HCl 10 MG TABLET PO (18:28)
[2022-03-22] MEDS: Sertraline HCL 25 MG TABLET PO (18:28)
[2022-03-22 19:57] VITALS: PULSE 79; RESP 15; O2SAT 94
[2022-03-22] MEDS: Calcium + Vitamin D 250 MG TABLET 500 MG PO (21:13)
[2022-03-22] MEDS: Memantine HCl 10 MG TABLET PO (21:13)
--- NOTE | 2022-03-22 21:18 | PC.NURSE ---
Patient took pills crushed in pudding, very slowly. She was unable to take a sip of water without coughing. Primary RN aware.
[2022-03-22 22:56] VITALS: BP 101/80; PULSE 77; RESP 17; TEMP 36.7; O2SAT 96
[2022-03-23 05:34] VITALS: PULSE 69; RESP 16; TEMP 36.7; O2SAT 96
[2022-03-23 10:03] VITALS: BP 132/52
[2022-03-23] MEDS: Calcium + Vitamin D 250 MG TABLET 500 MG PO ×2 (10:03→21:01)
[2022-03-23] MEDS: Memantine HCl 10 MG TABLET PO ×2 (10:03→21:01)
[2022-03-23] MEDS: Sertraline HCL 25 MG TABLET PO (10:03)
[2022-03-23] MEDS: Donepezil HCl 10 MG TABLET PO (10:03)
--- NOTE | 2022-03-23 11:35 | P.CNPS_ITS ---
History of Present Illness Date of Service: 03/22/2022 Chief Complaint: FALL,GEN WEAKNESS Reason for Consult: AMS Requesting physician: Chloe Hall Discussed with referring provider: Yes Sources of Information: patient interviewed, chart reviewed and crisis/core team assessment reviewed HPI Narrative: Ms. Spence is a 76 y/o with hx of AD. Pt was brought to [facility] due to increase confusion. Pt had extensive work up including head and spine CT, CBC, CMP. Utox negative. Urinalysis with NO leukocytosis or elevation of WBC- no indication to do culture. Head CT does not show any acute findings but does show significant atrophy. CMP- shows slightly increase in BUN, with elevated CK at 644. Pt seen in ED bed. Pt pleasant on approach. Confused as to who this instructional writer was, stating thanks for coming, you drove for so long to see me? When this instructional writer tried to introduce to pt, pt stated I know you. Pt noted to have some degree of expressive aphasia. Pt able to identify setting as hospital but not oriented to situation, month or date. Pt at some point looked up at poll (with camera) and seemed to say hi to someone who was not there but this appear to be more an illusion (distortion of sight, rather than hallucinations) than hallucinations. Pt poor historian due to advanced dementia. Collateral information gathered from both daughter and father. No combativeness or aggression s/s to dementia. No safety concerns in terms of aggression at home. Daughter does report that due to ortho hotn, aricept was stopped about 2-3 months ago. We discussed that aricept helps slow down progression of dementia and in some cases it helps more than others realized in terms of confusion. This can be one explanation to account for a more rapid delcine in cognitive/memory funciton in the past months. Medical Evaluation Reviewed: Yes [facility] Medical History Dementia High cholesterol HTN (hypertension) Surgical History H/O left wrist surgery Diagnostics Vital Signs (24Hr): Vital Signs - 24 hr 03/22/22 14:53 03/22/22 19:57 03/22/22 22:56 Temperature 98.1 F 98.1 F Pulse Rate 68 79 77 Respiratory Rate 12 15 17 Blood Pressure 144/84 H 101/80 Pulse Oximetry 94 96 Oxygen Delivery Method Room Air Room Air 03/23/22 05:34 03/23/22 10:03 Temperature 98.0 F Pulse Rate 69 Respiratory Rate 16 Blood Pressure 132/52 L Pulse Oximetry 96 Oxygen Delivery Method Room Air BMI result Body Mass Index 22.8 Labs Results: 03/21/22 14:31 03/21/22 14:31 Labs: Laboratory Results - last 48 hr 03/21/22 03/21/22 03/21/22 14:31 14:31 14:31 WBC 10.2 RBC 4.53 Hgb 13.8 Hct 42.8 MCV 94.5 MCH 30.5 MCHC 32.2 RDW 14.0 Plt Count 246 MPV 10.4 Immature Gran % (Auto) 0.2 Neut % (Auto) 85.0 H Lymph % (Auto) 7.7 L [place] % (Auto) 6.6 Eos % (Auto) 0.2 Baso % (Auto) 0.3 Lymph # (Auto) 0.8 L [place] # (Auto) 0.7 Eos # (Auto) 0.0 Baso # (Auto) 0.0 Abs Immat Gran (auto) 0.02 Absolute Neuts (auto) 8.7 H Absolute Nucleated RBC 0.000 Nucleated RBC % (auto) 0.0 PT 10.6 INR 0.9 Sodium 143 Potassium 4.3 Chloride 105 Carbon Dioxide 23 Anion Gap 19 BUN 25 H Creatinine 0.78 Estim Creat Clear Calc 54.3 Estimated GFR > 60 Random Glucose 90 Lactic Acid Calcium 9.1 Magnesium 2.2 Total Bilirubin 0.8 Direct Bilirubin 0.2 AST 42 H D ALT 25 Alkaline Phosphatase 112 Total Creatine Kinase 655 H Troponin I High Sens Total Protein 6.8 Albumin 4.3 TSH Urine Color Urine Appearance Urine pH Ur Specific [place] Urine Protein Urine Glucose (UA) Urine Ketones Urine Blood Urine Nitrite Ur Leukocyte Esterase Urine RBC Urine WBC Ur Squamous Epith Cells Urine Bacteria Hyaline Casts Urine Opiates Screen Urine Fentanyl Screen Ur Barbiturates Screen Ur Phencyclidine Scrn Ur Amphetamines Screen U Benzodiazepines Scrn Urine Cocaine Screen U Marijuana (THC) Screen Ethyl Alcohol COVID-19 ([facility]ILIA) COVID-19 Clin Com 03/21/22 03/21/22 03/21/22 14:31 14:31 14:31 WBC RBC Hgb Hct MCV MCH MCHC RDW Plt Count MPV Immature Gran % (Auto) Neut % (Auto) Lymph % (Auto) [place] % (Auto) Eos % (Auto) Baso % (Auto) Lymph # (Auto) [place] # (Auto) Eos # (Auto) Baso # (Auto) Abs Immat Gran (auto) Absolute Neuts (auto) Absolute Nucleated RBC Nucleated RBC % (auto) PT INR Sodium Potassium Chloride Carbon Dioxide Anion Gap BUN Creatinine Estim Creat Clear Calc Estimated GFR Random Glucose Lactic Acid 1.0 Calcium Magnesium Total Bilirubin Direct Bilirubin AST ALT Alkaline Phosphatase Total Creatine Kinase Troponin I High Sens 6.6 Total Protein Albumin TSH Urine Color Urine Appearance Urine pH Ur Specific [place] Urine Protein Urine Glucose (UA) Urine Ketones Urine Blood Urine Nitrite Ur Leukocyte Esterase Urine RBC Urine WBC Ur Squamous Epith Cells Urine Bacteria Hyaline Casts Urine Opiates Screen Urine Fentanyl Screen Ur Barbiturates Screen Ur Phencyclidine Scrn Ur Amphetamines Screen U Benzodiazepines Scrn Urine Cocaine Screen U Marijuana (THC) Screen Ethyl Alcohol COVID-19 ([facility]ILIA) Negative COVID-19 Clin Com See Note 03/21/22 03/21/22 03/21/22 14:31 15:46 15:46 WBC RBC Hgb Hct MCV MCH MCHC RDW Plt Count MPV Immature Gran % (Auto) Neut % (Auto) Lymph % (Auto) [place] % (Auto) Eos % (Auto) Baso % (Auto) Lymph # (Auto) [place] # (Auto) Eos # (Auto) Baso # (Auto) Abs Immat Gran (auto) Absolute Neuts (auto) Absolute Nucleated RBC Nucleated RBC % (auto) PT INR Sodium Potassium Chloride Carbon Dioxide Anion Gap BUN Creatinine Estim Creat Clear Calc Estimated GFR Random Glucose Lactic Acid Calcium Magnesium Total Bilirubin Direct Bilirubin AST ALT Alkaline Phosphatase Total Creatine Kinase Troponin I High Sens Total Protein Albumin TSH 3.78 Urine Color Yellow Urine Appearance Clear Urine pH 6.0 Ur Specific [place] 1.015 Urine Protein Trace Urine Glucose (UA) Negative Urine Ketones Trace Urine Blood Trace H Urine Nitrite Negative Ur Leukocyte Esterase Negative Urine RBC 0-2 Urine WBC 0-5 Ur Squamous Epith Cells 0-2 Urine Bacteria None Seen Hyaline Casts 0-2 Urine Opiates Screen Not Detected Urine Fentanyl Screen Not Detected Ur Barbiturates Screen Not Detected Ur Phencyclidine Scrn Not Detected Ur Amphetamines Screen Not Detected U Benzodiazepines Scrn Not Detected Urine Cocaine Screen Not Detected U Marijuana (THC) Screen Not Detected Ethyl Alcohol < 10 COVID-19 ([facility]ILIA) COVID-19 Clin Com Imaging Radiology Impressions: ITS Impressions Cervical Spine CT 03/21/22 13:51 IMPRESSION: 1. Straightening of the normal cervical lordosis may be secondary to positioning and/or muscle spasm. 2. Multilevel degenerative changes without acute abnormality. Head CT 03/21/22 13:51 IMPRESSION: No acute intracranial pathology. Chest X-Ray 03/21/22 15:59 IMPRESSION: No acute cardiopulmonary process. Mental Status Exam Mental Status Exam Narrative: Appearance: thin, wearing hospital gown, in NAD Behavior: pleasantly confused Psychomotor: no significant retardation or agitation noted Speech: mumbles, some degree of expressive aphasia noted along with poverty of speech, spontaneous TP: poverty of speech and comfabulation TC: greeting instructional writer as if she knew me. VH/AH: no overt signs Delusions: no overt signs noted or reported Insight/judgment: severely impaired x 2. Memory/cog: alert, not oriented to situation, month, date, year, some idea that she was in hospital but this was also questionable at she also seemed to think it was home. Medications Medications Current Medications Calcium Carbonate/Cholecalciferol (Calcium + Vitamin D 250 Mg Tablet) 500 mg PO BID [facility] Last Admin: 03/23/22 10:03 Dose: 500 mg Donepezil HCl (Donepezil Hcl 10 Mg Tablet) 10 mg PO DAILY [facility] Last Admin: 03/23/22 10:03 Dose: 10 mg Ergocalciferol (Ergocalciferol (Vitamin D2) 1,250 Mcg Capsule) 1,[address] [facility] Memantine (Memantine Hcl 10 Mg Tablet) 10 mg PO BID [facility] Last Admin: 03/23/22 10:03 Dose: 10 mg Pharmacy Consult (Consult Rx Perform Med Rec) 1 each MISCELLANE ONCE PRN PRN Reason: Consult order Sertraline HCl (Sertraline Hcl 25 Mg Tablet) 25 mg PO DAILY [facility] Last Admin: 03/23/22 10:03 Dose: 25 mg Allergies Allergies Allergy/AdvReac Type Severity Reaction Status Date / Time No Known Allergies Allergy Unknown NONE Verified 07/07/20 13:42 Assessment & Plan Assessment & Plan (1) Alzheimer's dementia: Status: Acute Code(s): G30.9 - Alzheimer's disease, unspecified; F02.80 - Dementia in other diseases classified elsewhere, unspecified severity, without behavioral disturbance, psychotic disturbance, mood disturbance, and anxiety Plan Mrs. Spence is a 76 y/o woman with hx of AD, brought in by family as pt presenting with increase confusion. No concerns in terms of combative behaviors at home. Medical work up as described in HPI did not show any acute medical process. Of note, it does appear that aricept was stopped about 2-3 months ago due to Ortho HOTN. This medications, as explained to her daughter, helps slow down progression of AD, and in certain occasion it is helping more than others realize (confusion, orientation). It is possible that stopping this medication could account for a more drastic decline in memory/cog in past few months. There is no indication for inpatient psych- no safety concerns in terms of combativeness or aggression towards self or others secondary to dementia. Further medication changes can be done OP. Pt received IV fluids, can recheck BUN and CK. PLAN 1. No need for inpatient parvin psych. 2. Referred to pt's wire welder to decide whether to restart aricept or con automatic pad making machine operator exelon (May have less effect on HOTN) 3. Family to decide whether pt can return home with services (currently pt has none and main caregiver is ) or [facility] placement in memory unit. I spent minutes with the patient and/or on the patient floor today, greater than?50% of which was spent counseling/coordinating care.
[2022-03-23 14:08] LABS: Blood Urea Nitrogen 23 mg/dL (9-16); Creatinine Clr Calc Pharmacy 58.8; Estimated Glomerular Filt Rate > 60
--- NOTE | 2022-03-23 15:08 | PC.NURSE ---
Pt resting quietly, respirations even and unlabored. Ate lunch today with assistance. at bedside.
[2022-03-23 15:56] VITALS: BP 186/102; PULSE 64; RESP 18; TEMP 36.4; O2SAT 90
--- NOTE | 2022-03-23 16:37 | PC.NURSE ---
PT WAS GIVEN A BED BATH ,LOTION AND POWDER APPLY ,HAIR COMB ,BEDDING CHANGE ,WARM BLANKET GIVEN ,NEW PUERWICK IN PLACE DAUGHTER JUST STOP BY .
--- NOTE | 2022-03-23 16:39 | PC.NURSE ---
PT WAS MOVED INTO A HOSPITAL BED BY THIS PCT .
--- NOTE | 2022-03-23 19:01 | PC.NURSE ---
PT WAS SET UP FOR SUPPER BY THIS PCT .
[2022-03-23 20:35] VITALS: BP 124/66; PULSE 61; TEMP 36.6; O2SAT 98
--- NOTE | 2022-03-23 22:21 | MHC.CM.ED ---
CM attempted to meet with patient. Pt has dementia and unable to have meaningful conversation with patient. Pt pleasant. Calm. Not trying to get OOB. Fed herself. Speaking with daughter. Lives with , who is the primary caregiver. Disabled daughter also lives with parents. Parents have a trust to care for daughter. Local family. Seen by CARE team and recommended psych evaluation. Psych evaluation-recommends re-starting aricept or exelon. Not in need of inpatient psych. Cleared. PT attempted to meet with patient yesterday, but patient unable to engage with PT. PT re-consulted for tomorrow. CM spoke with daughter, and son-in-law regarding plan moving forward. Family aware that PT will attempt to evaluate tomorrow. If pt can participate and PT recommends STR, CM will be able to refer to local facilities. If not, then patient will go home unless family deems patient unsafe. At this point, family is concerned about weakness and increasing confusion. is the primary caregiver. CM spoke with family about family help, home services, agencies and need for private pay funds for home help, memory care and LTC. Family does not have LTC insurance. Family not interested in LTC at this time. Family may need to arrange additional help at home. CM will speak with family again tomorrow after PT evaluation. No referrals placed at this time, as unsure if patient witll be able to participate in PT. HCP not addressed. CM to follow for d/c needs.
[2022-03-24 06:23] VITALS: BP 149/80; PULSE 62; RESP 18; TEMP 37.1; O2SAT 97
--- NOTE | 2022-03-24 08:04 | PC.NURSE ---
pt. alert and oriented x2. denies pain. VS WNL. lung sounds clear. cleaned her up. pt working with her now. daughter at bedside. gave her morning meds and breakfast. purewick in place
[2022-03-24 08:17] VITALS: BP 146/70; PULSE 65; RESP 18; O2SAT 99
[2022-03-24] MEDS: Sertraline HCL 25 MG TABLET PO (08:18)
[2022-03-24] MEDS: Memantine HCl 10 MG TABLET PO (08:18)
[2022-03-24] MEDS: Calcium + Vitamin D 250 MG TABLET 500 MG PO (08:18)
[2022-03-24] MEDS: Donepezil HCl 10 MG TABLET PO (08:28)
[2022-03-24 08:45] VITALS: BP 146/70; PULSE 65; O2SAT 99
--- NOTE | 2022-03-24 09:22 | MHC.CM.ED ---
Addendum entered by Re Roberto 03/24/22 10:54: Pt has been accepted to [facility]. Dtr Cherie in agreement w/plan. [facility] booked for 12pm. Pt's spouse to visit before she leaves and will bring HCP which will be sent to facility. Original Note: Received consult for assessment of d/c needs; pt is alert, pleasantly confused d/t baseline dementia. Hx obtained from EMR and her dtr Cherie. Pt resides w/spouse and has assistance from family. She requires continuous supervision and cueing and has become more unsteady resulting in falls. No services at this time. PT eval is suggesting STR. Family receptive to a broad semi geographical search. Pt is up to date w/COVID vaccines and spouse will bring in a copy of her HCP today which will be uploaded and sent to STR search. ED CM to follow.
--- NOTE | 2022-03-24 11:45 | PC.NURSE ---
Called [facility] in [place] and gave report.
[2022-03-24 12:18] VITALS: BP 137/67; PULSE 58; RESP 15; O2SAT 97
== END 2022-03-24 12:58 | disposition skilled nursing facility (03) ==
PROVIDERS: Social Worker; Emergency Provider Emergency Medicine; PCP Internal Medicine
DX: F03.911 Unspecified dementia, unspecified severity, with agitation (principal); R51.9 Headache, unspecified; M54.2 Cervicalgia; R07.89 Other chest pain; R26.81 Unsteadiness on feet; Z20.822 Contact with and (suspected) exposure to COVID-19; Z79.899 Other long term (current) drug therapy
CPT/HCPCS: 36415; 70450; 71045; 72125; 80048; 80076; 80307; 81001; 81003; 82077; 82550; 82565; 83605; 83735; 84443; 84484; 84520; 85025; 85610; 87040; 87635; 93005; 97162; 99285